=== PATIENT | female | born 1945 | race Caucasian/White ===

== ENCOUNTER 2016-08-04 15:18 | Inpatient (IN) | payer MEDICARE, OTHER, MEDICAID ==
[~2016-08-04 15:18] MED LIST: ACETAMINOPHEN325 M2 PO; ACETAMINOPHEN500 M4 PO; ALBUTEROL SULF8.5 G1 IH; ALL DAY ALLERGY10 M4 PO; ALL DAY ALLERGY10 M7 PO; APRISO0.375 G1 PO; ARTIFICIAL TEAR15 M8 EACH EYE; ARTIFICIAL TEAR1512 EACH EYE; ARTIFICIAL TEAR1512 OP; ASA; ASACOL400 MG PO; ASPIR 8181 MG PO; ASPIRIN EC81 MG PO; ATIVAN0.5 M1 PO; AUGMENTIN 875-1 EAC2 PO; AVAPRO150 MG PO; BABY ASPIRIN81 MG PO; BAZA ANTIFUNGA142 GM TP; BENADRYL25 M3 PO; BISAC-EVAC10 MG RC; BISCOLAX10 MG PR; BLISTEX MEDICATE6 GM TP; CALCIUM ANTACID CH; CALCIUM500 M4 PO; CALMOSEPTINE OI71 G1 TP; CALTRATE PO; CEFDINIR300 M1 PO; CELEBREX200 MG PO; CITRUCEL413 GM PO; CLOPIDOGREL75 M1 PO; COLACE100 M1 PO; COUMADIN10 MG PO; COUMADIN3 M1 PO; COUMADIN5 MG PO; COUMADIN6 M1 PO; CRESTOR20 MG/TAB PO; CRESTOR5 MG PO; CULTURELLE1 EAC1 PO; DIFLUCAN150 M1 PO; DIPHEDRYL25 M1 PO; DIPHENHIST25 M2 PO; FAMOTIDINE20 MG PO; FELDENE20 MG PO; FEOSOL325 M1 PO; FUROSEMIDE40 M2 PO; GLIPIZIDE5 M2 PO; GLIPIZIDE5 MG PO; GLUCOPHAGE500 MG PO; GLUCOTROL5 M1 PO; H PO; HYDROCORTISON28.411 TP; IMDUR30 MG PO; IRON325 ( 65 ) PO; ISOSORBIDE MON PO; ISOSORBIDE MONO30 M4 PO; ISOSORBIDE MONO60 M3 PO; LASIX40 M1 PO; LASIX40 MG PO; LEVALBUTER1.25 MG/01 NEB; LEVEMIR FL100 UNIT/2 SC; LEVOXYL200 MC1 PO; LEXAPRO10 M2 PO; LIALDA1.2 G PO; LISINOPRIL5 M1 PO; LOPRESSOR50 MG PO; LOVENOX120 MG/0.1 SC; LOVENOX80 MG/0.8 SQ; LYRICA50 MG PO; LYRICA50 MG/CAP PO; MAGNESIUM OXID400 M1 PO; MAGNESIUM200 MG PO; MAGNESIUM400 M2 PO; MELATONIN5 M7 PO; METOPROLOL SUCC50 M1 PO; METOPROLOL SUCC50 MG PO; MICONAZOLE NITR30 G2 TOP; MICRO-K 1010 MEQ PO; MIRALAX17 G2 PO; NEURONTIN100 M1 PO; NEURONTIN300 M1 PO; NITROGLYCERIN0.4 M2 SL; NITROGLYCERIN0.4 MG SL; NITROSTAT0.4 MG/TAB SL; NOVOLOG FL100 UNIT/2 SC; NOVOLOG FL100 UNIT/2 SQ; NOVOLOG100 UNITS/ SC; NYAMYC15 GM TOP; NYSTOP60 GM EXT; OMEPRAZOLE20 MG PO; ONDANSETRON HCL8 M1 PO; PEPCID20 M1 PO; PERCOCET 10-321 EACH PO; PLAVIX75 M1 PO; POTASSIUM CHLO10 MEQ PO; POTASSIUM-9999 MG; PREDNISONE20 M1 PO; PRINIVIL5 M1 PO; PROTONIX40 M2 PO; RANEXA1000 M1 PO; RANEXA500 M1 PO; RANEXA500 MG PO; REQUIP0.5 M1 PO; REQUIP1 M1 PO; ROSUVASTATIN CA20 MG PO; SENNA PLUS TAB1 EAC1 PO; SINGULAIR10 M1 PO; STOMAHESIVE P28.3 GM TP; SULINDAC200 MG; SYNTHROID0.2 MG/TAB PO; SYNTHROID100 MC1 PO; SYNTHROID175 MC1 PO; SYNTHROID200 MCG PO; SYNTHROID25 MC1 PO; SYNTHROID25 MCG PO; TOPROL XL50 M1 PO; TOPROL XL50 MG PO; TRANXENE T PO; TRAZODONE HCL100 M1 PO; TYLENOL EXTRA500 M1 PO; TYLENOL325 M2 PO; ULTRAM50 M1 PO; VYTORIN 10/80 T1 TAB; XANAX0.25 M1 PO; XOPENEX1.25 MG/2 INH; ZOCOR20 MG PO
[2016-08-04] MEDS ORDERED: NOVOLOG FL100 UNIT/2 SC ×2 (15:31→15:33)
[2016-08-04] MEDS ORDERED: NYSTATIN15 G4 TOP (15:35)
[2016-08-04] MEDS ORDERED: CORTIZONE-1028 G2 TP (15:35)
[2016-08-04] MEDS ORDERED: STOMAHESIVE P28.3 GM TP (15:36)
[2016-08-04] MEDS ORDERED: BAZA ANTIFUNGA142 GM TP (15:37)
[2016-08-04] MEDS ORDERED: CALMOSEPTINE OI71 G1 TP (15:38)
[2016-08-04] MEDS ORDERED: APRISO0.375 G1 PO (15:38)
[2016-08-04] MEDS ORDERED: TRANXENE T PO (15:39)
[2016-08-04] MEDS ORDERED: PLAVIX75 M1 PO (15:39)
[2016-08-04] MEDS ORDERED: ASPIR-LOW81 M1 PO (15:39)
[2016-08-04] MEDS ORDERED: FEOSOL325 M1 PO (15:40)
[2016-08-04] MEDS ORDERED: CULTURELLE1 EAC1 PO (15:40)
[2016-08-04] MEDS ORDERED: PEPCID20 M1 PO (15:40)
[2016-08-04] MEDS ORDERED: LEXAPRO10 M2 PO (15:40)
[2016-08-04] MEDS ORDERED: GLUCOTROL5 M1 PO ×2 (15:40→15:41)
[2016-08-04] MEDS ORDERED: SYNTHROID0.2 MG/TAB PO (15:41)
[2016-08-04] MEDS ORDERED: ISOSORBIDE MONO60 M3 PO (15:41)
[2016-08-04] MEDS ORDERED: LEVOTHYROXINE25 MC3 PO (15:42)
[2016-08-04] MEDS ORDERED: MAGNESIUM OXID400 M1 PO (15:42)
[2016-08-04] MEDS ORDERED: LYRICA50 MG/CAP PO (15:42)
[2016-08-04] MEDS ORDERED: PRINIVIL5 M1 PO (15:42)
[2016-08-04] MEDS ORDERED: SINGULAIR10 M1 PO (15:43)
[2016-08-04] MEDS ORDERED: MELATONIN5 M5 PO (15:43)
[2016-08-04] MEDS ORDERED: TOPROL XL50 M1 PO (15:43)
[2016-08-04] MEDS ORDERED: MIRALAX17 G2 PO (15:44)
[2016-08-04] MEDS ORDERED: RANEXA500 M1 PO (15:44)
[2016-08-04] MEDS ORDERED: REQUIP1 M1 PO (15:44)
[2016-08-04] MEDS ORDERED: ROPINIROLE HCL0.5 M1 PO (15:44)
[2016-08-04] MEDS ORDERED: COUMADIN7.5 M1 PO (15:45)
[2016-08-04] MEDS ORDERED: SENNA PLUS TAB1 EAC1 PO (15:45)
[2016-08-04] MEDS ORDERED: ROSUVASTATIN CA20 MG PO (15:45)
[2016-08-04] MEDS ORDERED: TYLENOL325 M2 PO (15:46)
[2016-08-04] MEDS ORDERED: ARTIFICIAL TEAR1512 OP (15:47)
[2016-08-04] MEDS ORDERED: XOPENEX1.25 MG/2 INH (15:48)
[2016-08-04] MEDS ORDERED: DOCUSATE SODIU100 M3 PO (15:48)
[2016-08-04] MEDS ORDERED: CALCIUM500 M4 PO (15:48)
[2016-08-04] MEDS ORDERED: ULTRAM50 M1 PO (15:49)
[2016-08-04] MEDS ORDERED: NITROSTAT0.4 MG/TAB SL (15:49)
[2016-08-04 16:11] LABS: URINE BILIRUBIN NEGATIVE (NEG); URINE BLOOD LARGE (NEG); URINE GLUCOSE (UA) NEGATIVE (NEG); URINE KETONE SMALL (NEG); URINE LEUKOCYTE ESTERASE POSITIVE (NEG); URINE NITRITE NEGATIVE (NEG); URINE PROTEIN MODERATE (NEG); URINE SPECIFIC GRAVITY 1.015 (1.003-1.030)
[2016-08-04 16:12] LABS: URINE APPEARANCE CLOUDY; URINE COLOR YELLOW
[2016-08-04 16:17] LABS: URINE WBC FULL FIELD /[HPF] (0-5)
[2016-08-04 16:18] LABS: URINE BACTERIA 2+; URINE EPITHELIAL CELLS 0-5 /[HPF] (0-10); URINE RBC 0-2 /[HPF] (0-5)
[2016-08-04 17:18] LABS: BASO % 0.8 % (0-2); EOS % 1.7 % (0-7); EOSINOPHIL ABSOLUTE COUNT 0.1 tho/cmm (0.0-0.7); HGB-HEMOGLOBIN 6.8 gm/dl (12.0-15.5); IMMATURE GRANULOCYTES ABSOLUTE 0.01 tho/cmm (0-0.03); IMMATURE GRANULOCYTES PERCENT 0.2 % (0-0.3); LYMPH % 14.3 % (20-45); LYMPH ABSOLUTE COUNT 0.7 tho/cmm (0.8-4.5); MCH (MEAN CORPUSCULAR HGB) 26.2 pg (28.0-32.0); MCV (MEAN CELL VOLUME) 89.2 fl (82.0-96.0); MEAN PLATELET VOLUME 9.5 cmc (9.4-12.4); MONO % 14.1 % (0-12); MONOCYTE ABSOLUTE COUNT 0.7 tho/cmm (0.0-1.2); NEUTROPHIL ABSOLUTE COUNT 3.3 tho/cmm (1.6-8.0); NEUTROPHIL-AUTOMATED 3.3 tho/cmm (1.6-8.0); NEUTROPHILS % 68.9 % (40-80); PLATELET COUNT 164 tho/cmm (150-450); RED CELL DISTRIBUTION WIDTH 19.3 % (12.4-16.4); WHITE BLOOD COUNT 4.8 tho/cmm (4.0-10.0)
[2016-08-04 17:19] LABS: HCT-HEMATOCRIT 23.2 % (34.0-49.0); MCHC MEAN CORPUSCULAR HGB CONC 29.3 % (32.0-36.0)
[2016-08-04 17:24] LABS: INR 4.1 INR (0.9-1.1); PROTHROMBIN TIME 49.1 SECONDS (9.0-13.6)
[2016-08-04 17:40] LABS: ALB/GLOB RATIO 0.8 (0.8-2.0); ALBUMIN 2.8 g/dl (3.5-5.0); ALKALINE PHOSPHATASE 51 U/L (33-138); ALT/SGPT 17 U/L (12-78); ANION GAP 11 mmol/L (0-20); AST/SGOT 31 U/L (10-40); BILIRUBIN,TOTAL 0.1 mg/dl (0-1.5); BLOOD UREA NITROGEN 52 mg/dl (6-24); CALCIUM 8.3 mg/dl (8.5-10.5); CARBON DIOXIDE-VENOUS 27 mmol/L (22-32); CHLORIDE 105 mmol/l (96-110); GLUCOSE 172 mg/dL (70-110); POTASSIUM 5.8 mmol/L (3.7-5.1); SODIUM 137 mmol/L (135-145); eGFR VALUE FOR BLACK 25 mL/Min
[2016-08-04 18:02] LABS: PROCALCITONIN 0.13 ng/ml (0.05-0.09)
[2016-08-04 19:49] LABS: PHOSPHOROUS 3.4 mg/dl (2.5-4.9)
[2016-08-04 19:59] LABS: MAGNESIUM 2.9 mg/dl (1.3-2.6)
[2016-08-04 22:13] LABS: ANION GAP 9 mmol/L (0-20); BLOOD UREA NITROGEN 44 mg/dl (6-24); CALCIUM 8.1 mg/dl (8.5-10.5); CARBON DIOXIDE-VENOUS 26 mmol/L (22-32); CHLORIDE 110 mmol/l (96-110); CREATININE 1.86 mg/dl (0.50-1.10); GLUCOSE 169 mg/dL (70-110); POTASSIUM 5.3 mmol/L (3.7-5.1); SODIUM 140 mmol/L (135-145); eGFR VALUE FOR BLACK 31 mL/Min
[2016-08-04 23:11] LABS: URINE PRT/CR RATIO 0.6 Ratio (0.0-0.20); URINE TOTAL PROTEIN-RANDOM 70.4 mg/dl (<11.8)
[2016-08-05 04:26] LABS: BASO % 0.5 % (0-2); EOS % 1.2 % (0-7); EOSINOPHIL ABSOLUTE COUNT 0.1 tho/cmm (0.0-0.7); HCT-HEMATOCRIT 24.3 % (34.0-49.0); HGB-HEMOGLOBIN 7.4 gm/dl (12.0-15.5); IMMATURE GRANULOCYTES ABSOLUTE 0.01 tho/cmm (0-0.03); IMMATURE GRANULOCYTES PERCENT 0.2 % (0-0.3); INR 4.4 INR (0.9-1.1); LYMPH % 13.7 % (20-45); LYMPH ABSOLUTE COUNT 0.6 tho/cmm (0.8-4.5); MCH (MEAN CORPUSCULAR HGB) 26.7 pg (28.0-32.0); MCHC MEAN CORPUSCULAR HGB CONC 30.5 % (32.0-36.0); MCV (MEAN CELL VOLUME) 87.7 fl (82.0-96.0); MEAN PLATELET VOLUME 9.4 cmc (9.4-12.4); MONO % 8.3 % (0-12); MONOCYTE ABSOLUTE COUNT 0.4 tho/cmm (0.0-1.2); NEUTROPHIL ABSOLUTE COUNT 3.2 tho/cmm (1.6-8.0); NEUTROPHIL-AUTOMATED 3.2 tho/cmm (1.6-8.0); NEUTROPHILS % 76.1 % (40-80); PLATELET COUNT 122 tho/cmm (150-450); PROTHROMBIN TIME 53.2 SECONDS (9.0-13.6); RED BLOOD COUNT 2.77 mil/cmm (4.00-5.20); WHITE BLOOD COUNT 4.2 tho/cmm (4.0-10.0)
[2016-08-05 05:08] LABS: ANION GAP 10 mmol/L (0-20); BLOOD UREA NITROGEN 40 mg/dl (6-24); CARBON DIOXIDE-VENOUS 26 mmol/L (22-32); CHLORIDE 109 mmol/l (96-110); GLUCOSE 186 mg/dL (70-110); MAGNESIUM 2.4 mg/dl (1.3-2.6); PHOSPHOROUS 2.6 mg/dl (2.5-4.9); POTASSIUM 5.4 mmol/L (3.7-5.1); SODIUM 140 mmol/L (135-145); eGFR VALUE FOR BLACK 35 mL/Min
[2016-08-05 05:13] LABS: TSH-THYROID STIMULATING HORM. 3.61 uIU/ml (0.40-3.80)
[2016-08-05 10:01] LABS: ABG CO2 ARTERIAL 22 mmol/L (21-27); ARTERIAL BLD GAS O2 SATURATION 99 % (95-98); ARTERIAL BLOOD GAS PCO2 38 mmHg (32-45); ARTERIAL PO2 131 mmHg (70-100); BICARBONATE 22 mmol/L (21-28); BLOOD GAS BASE EXCESS -2 mM/L (-/+3); PH 7.39 Units (7.35-7.45)
[2016-08-05 10:58] LABS: INR 4.3 INR (0.9-1.1); PROTHROMBIN TIME 52.1 SECONDS (9.0-13.6)
[2016-08-05 13:32] LABS: ABG CO2 ARTERIAL 25 mmol/L (21-27); ARTERIAL BLD GAS O2 SATURATION 98 % (95-98); BICARBONATE 24 mmol/L (21-28); BLOOD GAS BASE EXCESS -3 mM/L (-/+3)
[2016-08-05 13:33] LABS: ARTERIAL BLOOD GAS PCO2 51 mmHg (32-45); ARTERIAL PO2 107 mmHg (70-100); PH 7.29 Units (7.35-7.45)
[2016-08-05 13:44] LABS: BASO % 0.4 % (0-2); EOS % 1.3 % (0-7); EOSINOPHIL ABSOLUTE COUNT 0.1 tho/cmm (0.0-0.7); HCT-HEMATOCRIT 25.3 % (34.0-49.0); HGB-HEMOGLOBIN 7.8 gm/dl (12.0-15.5); IMMATURE GRANULOCYTES ABSOLUTE 0.01 tho/cmm (0-0.03); IMMATURE GRANULOCYTES PERCENT 0.2 % (0-0.3); LYMPH % 18.4 % (20-45); LYMPH ABSOLUTE COUNT 0.9 tho/cmm (0.8-4.5); MCH (MEAN CORPUSCULAR HGB) 26.9 pg (28.0-32.0); MCHC MEAN CORPUSCULAR HGB CONC 30.8 % (32.0-36.0); MCV (MEAN CELL VOLUME) 87.2 fl (82.0-96.0); MEAN PLATELET VOLUME 9.7 cmc (9.4-12.4); MONO % 10.5 % (0-12); MONOCYTE ABSOLUTE COUNT 0.5 tho/cmm (0.0-1.2); NEUTROPHIL ABSOLUTE COUNT 3.3 tho/cmm (1.6-8.0); NEUTROPHIL-AUTOMATED 3.3 tho/cmm (1.6-8.0); NEUTROPHILS % 69.2 % (40-80); PLATELET COUNT 142 tho/cmm (150-450); RED CELL DISTRIBUTION WIDTH 18.4 % (12.4-16.4); WHITE BLOOD COUNT 4.8 tho/cmm (4.0-10.0)
[2016-08-05 13:51] LABS: INR 4.1 INR (0.9-1.1); PROTHROMBIN TIME 49.5 SECONDS (9.0-13.6)
[2016-08-05 14:12] LABS: ALB/GLOB RATIO 0.7 (0.8-2.0); ALBUMIN 2.5 g/dl (3.5-5.0); ALKALINE PHOSPHATASE 42 U/L (33-138); ALT/SGPT 13 U/L (12-78); BLOOD UREA NITROGEN 32 mg/dl (6-24); CALCIUM 7.8 mg/dl (8.5-10.5); CARBON DIOXIDE-VENOUS 24 mmol/L (22-32); CHLORIDE 109 mmol/l (96-110); CREATININE 1.44 mg/dl (0.50-1.10); GLUCOSE 228 mg/dL (70-110); SODIUM 142 mmol/L (135-145); eGFR VALUE FOR BLACK 43 mL/Min
[2016-08-05 14:20] LABS: ANION GAP 14 mmol/L (0-20); AST/SGOT 30 U/L (10-40); BILIRUBIN,TOTAL 0.2 mg/dl (0-1.5); POTASSIUM 5.1 mmol/L (3.7-5.1)
[2016-08-05 14:37] LABS: PROCALCITONIN 0.05 ng/ml (0.05-0.09)
[2016-08-05 17:28] LABS: ABG CO2 ARTERIAL 25 mmol/L (21-27); ARTERIAL BLD GAS O2 SATURATION 98 % (95-98); ARTERIAL BLOOD GAS PCO2 45 mmHg (32-45); ARTERIAL PO2 88 mmHg (70-100); BICARBONATE 24 mmol/L (21-28); BLOOD GAS BASE EXCESS -2 mM/L (-/+3); PH 7.34 Units (7.35-7.45)
[2016-08-05 17:39] LABS: HGB-HEMOGLOBIN 9.9 gm/dl (12.0-15.5)
[2016-08-05 23:26] LABS: URINE BILIRUBIN NEGATIVE (NEG); URINE BLOOD MODERATE (NEG); URINE GLUCOSE (UA) MODERATE (NEG); URINE KETONE NEGATIVE (NEG); URINE LEUKOCYTE ESTERASE POSITIVE (NEG); URINE NITRITE NEGATIVE (NEG); URINE PH 6.5 (5.0-8.0); URINE PROTEIN SMALL (NEG); URINE SPECIFIC GRAVITY 1.005 (1.003-1.030)
[2016-08-05 23:27] LABS: URINE APPEARANCE CLOUDY; URINE COLOR PALE YELLOW
[2016-08-05 23:34] LABS: URINE BACTERIA 2+; URINE EPITHELIAL CELLS RARE /[HPF] (0-10); URINE RBC 20-30 /[HPF] (0-5); URINE WBC FULL FIELD /[HPF] (0-5)
[2016-08-06 05:05] LABS: INR 2.2 INR (0.9-1.1); PROTHROMBIN TIME 25.8 SECONDS (9.0-13.6)
[2016-08-06 05:21] LABS: BASO % 0.9 % (0-2); BASO ABSOLUTE COUNT 0.1 tho/cmm (0.0-0.2); EOS % 1.9 % (0-7); EOSINOPHIL ABSOLUTE COUNT 0.1 tho/cmm (0.0-0.7); HCT-HEMATOCRIT 31.9 % (34.0-49.0); IMMATURE GRANULOCYTES ABSOLUTE 0.01 tho/cmm (0-0.03); IMMATURE GRANULOCYTES PERCENT 0.2 % (0-0.3); LYMPH % 17.1 % (20-45); MCH (MEAN CORPUSCULAR HGB) 27.3 pg (28.0-32.0); MCHC MEAN CORPUSCULAR HGB CONC 31.3 % (32.0-36.0); MCV (MEAN CELL VOLUME) 87.2 fl (82.0-96.0); MEAN PLATELET VOLUME 9.7 cmc (9.4-12.4); MONO % 14.7 % (0-12); MONOCYTE ABSOLUTE COUNT 0.9 tho/cmm (0.0-1.2); NEUTROPHIL ABSOLUTE COUNT 3.8 tho/cmm (1.6-8.0); NEUTROPHIL-AUTOMATED 3.8 tho/cmm (1.6-8.0); NEUTROPHILS % 65.2 % (40-80); PLATELET COUNT 146 tho/cmm (150-450); RED BLOOD COUNT 3.66 mil/cmm (4.00-5.20); RED CELL DISTRIBUTION WIDTH 17.9 % (12.4-16.4); WHITE BLOOD COUNT 5.9 tho/cmm (4.0-10.0)
[2016-08-06 05:29] LABS: ALB/GLOB RATIO 0.8 (0.8-2.0); ALBUMIN 2.8 g/dl (3.5-5.0); ALKALINE PHOSPHATASE 47 U/L (33-138); ALT/SGPT 14 U/L (12-78); AST/SGOT 17 U/L (10-40); BILIRUBIN,TOTAL 0.3 mg/dl (0-1.5); BLOOD UREA NITROGEN 26 mg/dl (6-24); CALCIUM 8.2 mg/dl (8.5-10.5); CARBON DIOXIDE-VENOUS 28 mmol/L (22-32); CHLORIDE 106 mmol/l (96-110); GLUCOSE 125 mg/dL (70-110); MAGNESIUM 1.9 mg/dl (1.3-2.6); PHOSPHOROUS 1.9 mg/dl (2.5-4.9); SODIUM 140 mmol/L (135-145); eGFR VALUE FOR BLACK 44 mL/Min
[2016-08-06 05:39] LABS: ANION GAP 10 mmol/L (0-20)
[2016-08-07 03:22] LABS: BASO % 0.5 % (0-2); EOS % 2.7 % (0-7); EOSINOPHIL ABSOLUTE COUNT 0.2 tho/cmm (0.0-0.7); HCT-HEMATOCRIT 28.5 % (34.0-49.0); HGB-HEMOGLOBIN 8.9 gm/dl (12.0-15.5); IMMATURE GRANULOCYTES ABSOLUTE 0.01 tho/cmm (0-0.03); IMMATURE GRANULOCYTES PERCENT 0.2 % (0-0.3); LYMPH % 18.6 % (20-45); LYMPH ABSOLUTE COUNT 1.1 tho/cmm (0.8-4.5); MCH (MEAN CORPUSCULAR HGB) 27.4 pg (28.0-32.0); MCHC MEAN CORPUSCULAR HGB CONC 31.2 % (32.0-36.0); MCV (MEAN CELL VOLUME) 87.7 fl (82.0-96.0); MEAN PLATELET VOLUME 9.7 cmc (9.4-12.4); MONO % 10.6 % (0-12); MONOCYTE ABSOLUTE COUNT 0.6 tho/cmm (0.0-1.2); NEUTROPHIL ABSOLUTE COUNT 3.8 tho/cmm (1.6-8.0); NEUTROPHIL-AUTOMATED 3.8 tho/cmm (1.6-8.0); NEUTROPHILS % 67.4 % (40-80); PLATELET COUNT 136 tho/cmm (150-450); RED BLOOD COUNT 3.25 mil/cmm (4.00-5.20); RED CELL DISTRIBUTION WIDTH 17.4 % (12.4-16.4); WHITE BLOOD COUNT 5.7 tho/cmm (4.0-10.0)
[2016-08-07 04:48] LABS: ANION GAP 8 mmol/L (0-20); BLOOD UREA NITROGEN 14 mg/dl (6-24); CALCIUM 7.8 mg/dl (8.5-10.5); CARBON DIOXIDE-VENOUS 30 mmol/L (22-32); CHLORIDE 107 mmol/l (96-110); CHOLESTEROL 165 mg/dl (120-200); CREATININE 1.17 mg/dl (0.50-1.10); GLUCOSE 109 mg/dL (70-110); HDL CHOLESTEROL 54 mg/dl (40-60); LDL CHOLESTEROL 87 mg/dl (0-99); POTASSIUM 3.8 mmol/L (3.7-5.1); SODIUM 141 mmol/L (135-145); TRIGLYCERIDES 120 mg/dl (<149); VLDL 24 mg/dl (0-30); eGFR VALUE FOR BLACK 55 mL/Min
[2016-08-07 14:54] LABS: INR 1.2 INR (0.9-1.1); PROTHROMBIN TIME 14.2 SECONDS (9.0-13.6)
[2016-08-08 06:07] LABS: BASO % 0.7 % (0-2); EOS % 7.4 % (0-7); EOSINOPHIL ABSOLUTE COUNT 0.3 tho/cmm (0.0-0.7); HCT-HEMATOCRIT 28.4 % (34.0-49.0); HGB-HEMOGLOBIN 8.8 gm/dl (12.0-15.5); IMMATURE GRANULOCYTES ABSOLUTE 0.01 tho/cmm (0-0.03); IMMATURE GRANULOCYTES PERCENT 0.2 % (0-0.3); LYMPH % 24.6 % (20-45); MCH (MEAN CORPUSCULAR HGB) 27.2 pg (28.0-32.0); MCV (MEAN CELL VOLUME) 87.9 fl (82.0-96.0); MEAN PLATELET VOLUME 9.3 cmc (9.4-12.4); MONO % 8.1 % (0-12); MONOCYTE ABSOLUTE COUNT 0.3 tho/cmm (0.0-1.2); NEUTROPHIL ABSOLUTE COUNT 2.5 tho/cmm (1.6-8.0); NEUTROPHIL-AUTOMATED 2.5 tho/cmm (1.6-8.0); PLATELET COUNT 103 tho/cmm (150-450); RED BLOOD COUNT 3.23 mil/cmm (4.00-5.20); RED CELL DISTRIBUTION WIDTH 17.1 % (12.4-16.4); WHITE BLOOD COUNT 4.2 tho/cmm (4.0-10.0)
[2016-08-08 06:08] LABS: INR 1.2 INR (0.9-1.1); PROTHROMBIN TIME 13.7 SECONDS (9.0-13.6)
[2016-08-08 06:14] LABS: ANION GAP 11 mmol/L (0-20); BLOOD UREA NITROGEN 7 mg/dl (6-24); CARBON DIOXIDE-VENOUS 25 mmol/L (22-32); CHLORIDE 108 mmol/l (96-110); CREATININE 0.95 mg/dl (0.50-1.10); GLUCOSE 134 mg/dL (70-110); POTASSIUM 3.6 mmol/L (3.7-5.1); SODIUM 140 mmol/L (135-145); eGFR VALUE FOR BLACK 70 mL/Min
[2016-08-08 17:18] LABS: BASO % 0.5 % (0-2); EOS % 4.4 % (0-7); EOSINOPHIL ABSOLUTE COUNT 0.2 tho/cmm (0.0-0.7); HCT-HEMATOCRIT 30.1 % (34.0-49.0); HGB-HEMOGLOBIN 9.4 gm/dl (12.0-15.5); LYMPH % 19.1 % (20-45); LYMPH ABSOLUTE COUNT 0.8 tho/cmm (0.8-4.5); MCH (MEAN CORPUSCULAR HGB) 27.4 pg (28.0-32.0); MCHC MEAN CORPUSCULAR HGB CONC 31.2 % (32.0-36.0); MCV (MEAN CELL VOLUME) 87.8 fl (82.0-96.0); MEAN PLATELET VOLUME 9.7 cmc (9.4-12.4); MONO % 6.2 % (0-12); MONOCYTE ABSOLUTE COUNT 0.3 tho/cmm (0.0-1.2); NEUTROPHILS % 69.8 % (40-80); PLATELET COUNT 99 tho/cmm (150-450); RED BLOOD COUNT 3.43 mil/cmm (4.00-5.20); RED CELL DISTRIBUTION WIDTH 16.8 % (12.4-16.4); WHITE BLOOD COUNT 4.4 tho/cmm (4.0-10.0)
[2016-08-08 17:24] LABS: INR 1.1 INR (0.9-1.1); PROTHROMBIN TIME 12.7 SECONDS (9.0-13.6)
[2016-08-09 05:34] LABS: BASO % 0.5 % (0-2); EOS % 6.2 % (0-7); EOSINOPHIL ABSOLUTE COUNT 0.3 tho/cmm (0.0-0.7); HCT-HEMATOCRIT 28.4 % (34.0-49.0); HGB-HEMOGLOBIN 8.7 gm/dl (12.0-15.5); LYMPH % 21.1 % (20-45); LYMPH ABSOLUTE COUNT 0.9 tho/cmm (0.8-4.5); MCH (MEAN CORPUSCULAR HGB) 26.9 pg (28.0-32.0); MCHC MEAN CORPUSCULAR HGB CONC 30.6 % (32.0-36.0); MCV (MEAN CELL VOLUME) 87.9 fl (82.0-96.0); MEAN PLATELET VOLUME 9.3 cmc (9.4-12.4); MONO % 6.2 % (0-12); MONOCYTE ABSOLUTE COUNT 0.3 tho/cmm (0.0-1.2); NEUTROPHIL ABSOLUTE COUNT 2.8 tho/cmm (1.6-8.0); NEUTROPHIL-AUTOMATED 2.8 tho/cmm (1.6-8.0); PLATELET COUNT 90 tho/cmm (150-450); RED BLOOD COUNT 3.23 mil/cmm (4.00-5.20); RED CELL DISTRIBUTION WIDTH 16.6 % (12.4-16.4); WHITE BLOOD COUNT 4.2 tho/cmm (4.0-10.0)
[2016-08-09 05:37] LABS: ANION GAP 10 mmol/L (0-20); BLOOD UREA NITROGEN 4 mg/dl (6-24); CALCIUM 8.1 mg/dl (8.5-10.5); CARBON DIOXIDE-VENOUS 27 mmol/L (22-32); CHLORIDE 107 mmol/l (96-110); CREATININE 0.86 mg/dl (0.50-1.10); GLUCOSE 184 mg/dL (70-110); POTASSIUM 3.6 mmol/L (3.7-5.1); SODIUM 140 mmol/L (135-145); eGFR VALUE FOR BLACK 79 mL/Min
[2016-08-10 05:16] LABS: BASO % 0.5 % (0-2); EOSINOPHIL ABSOLUTE COUNT 0.2 tho/cmm (0.0-0.7); HCT-HEMATOCRIT 26.2 % (34.0-49.0); HGB-HEMOGLOBIN 8.3 gm/dl (12.0-15.5); IMMATURE GRANULOCYTES ABSOLUTE 0.01 tho/cmm (0-0.03); IMMATURE GRANULOCYTES PERCENT 0.3 % (0-0.3); LYMPH % 15.3 % (20-45); LYMPH ABSOLUTE COUNT 0.6 tho/cmm (0.8-4.5); MCH (MEAN CORPUSCULAR HGB) 27.7 pg (28.0-32.0); MCHC MEAN CORPUSCULAR HGB CONC 31.7 % (32.0-36.0); MCV (MEAN CELL VOLUME) 87.3 fl (82.0-96.0); MEAN PLATELET VOLUME 9.2 cmc (9.4-12.4); MONO % 6.3 % (0-12); MONOCYTE ABSOLUTE COUNT 0.2 tho/cmm (0.0-1.2); NEUTROPHIL ABSOLUTE COUNT 2.8 tho/cmm (1.6-8.0); NEUTROPHIL-AUTOMATED 2.8 tho/cmm (1.6-8.0); NEUTROPHILS % 73.6 % (40-80); PLATELET COUNT 80 tho/cmm (150-450); RED CELL DISTRIBUTION WIDTH 16.5 % (12.4-16.4); WHITE BLOOD COUNT 3.8 tho/cmm (4.0-10.0)
[2016-08-10 18:07] LABS: ABG CO2 ARTERIAL 26 mmol/L (21-27); ARTERIAL BLD GAS O2 SATURATION 90 % (95-98); ARTERIAL BLOOD GAS PCO2 49 mmHg (32-45); ARTERIAL PO2 60 mmHg (70-100); BICARBONATE 25 mmol/L (21-28); BLOOD GAS BASE EXCESS -1 mM/L (-/+3); PH 7.33 Units (7.35-7.45)
[2016-08-10 18:10] LABS: ALB/GLOB RATIO 0.6 (0.8-2.0); ALBUMIN 2.9 g/dl (3.5-5.0); ALKALINE PHOSPHATASE 64 U/L (33-138); ALT/SGPT 13 U/L (12-78); ANION GAP 14 mmol/L (0-20); AST/SGOT 11 U/L (10-40); BILIRUBIN,TOTAL 0.3 mg/dl (0-1.5); BLOOD UREA NITROGEN 3 mg/dl (6-24); CALCIUM 8.6 mg/dl (8.5-10.5); CARBON DIOXIDE-VENOUS 25 mmol/L (22-32); CHLORIDE 103 mmol/l (96-110); CREATININE 1.07 mg/dl (0.50-1.10); POTASSIUM 3.7 mmol/L (3.7-5.1); SODIUM 138 mmol/L (135-145); eGFR VALUE FOR BLACK 61 mL/Min
[2016-08-10 18:18] LABS: BASO % 0.6 % (0-2); EOS % 3.7 % (0-7); EOSINOPHIL ABSOLUTE COUNT 0.2 tho/cmm (0.0-0.7); HCT-HEMATOCRIT 36.9 % (34.0-49.0); HGB-HEMOGLOBIN 11.4 gm/dl (12.0-15.5); IMMATURE GRANULOCYTES ABSOLUTE 0.02 tho/cmm (0-0.03); IMMATURE GRANULOCYTES PERCENT 0.3 % (0-0.3); LYMPH % 15.8 % (20-45); MCH (MEAN CORPUSCULAR HGB) 27.3 pg (28.0-32.0); MCHC MEAN CORPUSCULAR HGB CONC 30.9 % (32.0-36.0); MCV (MEAN CELL VOLUME) 88.5 fl (82.0-96.0); MEAN PLATELET VOLUME 10.1 cmc (9.4-12.4); MONO % 5.7 % (0-12); MONOCYTE ABSOLUTE COUNT 0.4 tho/cmm (0.0-1.2); NEUTROPHIL ABSOLUTE COUNT 4.6 tho/cmm (1.6-8.0); NEUTROPHIL-AUTOMATED 4.6 tho/cmm (1.6-8.0); NEUTROPHILS % 73.9 % (40-80); RED BLOOD COUNT 4.17 mil/cmm (4.00-5.20); RED CELL DISTRIBUTION WIDTH 16.5 % (12.4-16.4)
[2016-08-10 18:22] LABS: GLUCOSE 338 mg/dL (70-110)
[2016-08-10 18:23] LABS: PLATELET COUNT 147 tho/cmm (150-450); WHITE BLOOD COUNT 6.2 tho/cmm (4.0-10.0)
[2016-08-11 04:46] LABS: BASO % 0.2 % (0-2); EOS % 1.6 % (0-7); EOSINOPHIL ABSOLUTE COUNT 0.1 tho/cmm (0.0-0.7); HCT-HEMATOCRIT 27.8 % (34.0-49.0); HGB-HEMOGLOBIN 8.6 gm/dl (12.0-15.5); IMMATURE GRANULOCYTES ABSOLUTE 0.01 tho/cmm (0-0.03); IMMATURE GRANULOCYTES PERCENT 0.2 % (0-0.3); LYMPH ABSOLUTE COUNT 0.6 tho/cmm (0.8-4.5); MCHC MEAN CORPUSCULAR HGB CONC 30.9 % (32.0-36.0); MCV (MEAN CELL VOLUME) 87.4 fl (82.0-96.0); MONOCYTE ABSOLUTE COUNT 0.3 tho/cmm (0.0-1.2); NEUTROPHIL ABSOLUTE COUNT 3.9 tho/cmm (1.6-8.0); NEUTROPHIL-AUTOMATED 3.9 tho/cmm (1.6-8.0); PLATELET COUNT 91 tho/cmm (150-450); RED BLOOD COUNT 3.18 mil/cmm (4.00-5.20); RED CELL DISTRIBUTION WIDTH 16.4 % (12.4-16.4); WHITE BLOOD COUNT 4.9 tho/cmm (4.0-10.0)
[2016-08-11 06:17] LABS: PROCALCITONIN 0.05 ng/ml (0.05-0.09)
[2016-08-11 15:41] LABS: TSH-THYROID STIMULATING HORM. 3.97 uIU/ml (0.40-3.80)
[2016-08-12 05:04] LABS: BASO % 0.8 % (0-2); EOS % 5.2 % (0-7); EOSINOPHIL ABSOLUTE COUNT 0.2 tho/cmm (0.0-0.7); HCT-HEMATOCRIT 27.9 % (34.0-49.0); HGB-HEMOGLOBIN 8.5 gm/dl (12.0-15.5); IMMATURE GRANULOCYTES ABSOLUTE 0.01 tho/cmm (0-0.03); IMMATURE GRANULOCYTES PERCENT 0.3 % (0-0.3); LYMPH % 22.1 % (20-45); LYMPH ABSOLUTE COUNT 0.8 tho/cmm (0.8-4.5); MCH (MEAN CORPUSCULAR HGB) 26.6 pg (28.0-32.0); MCHC MEAN CORPUSCULAR HGB CONC 30.5 % (32.0-36.0); MCV (MEAN CELL VOLUME) 87.5 fl (82.0-96.0); MEAN PLATELET VOLUME 9.9 cmc (9.4-12.4); MONO % 7.4 % (0-12); MONOCYTE ABSOLUTE COUNT 0.3 tho/cmm (0.0-1.2); NEUTROPHIL ABSOLUTE COUNT 2.4 tho/cmm (1.6-8.0); NEUTROPHIL-AUTOMATED 2.4 tho/cmm (1.6-8.0); NEUTROPHILS % 64.2 % (40-80); PLATELET COUNT 106 tho/cmm (150-450); RED BLOOD COUNT 3.19 mil/cmm (4.00-5.20); RED CELL DISTRIBUTION WIDTH 16.1 % (12.4-16.4); WHITE BLOOD COUNT 3.7 tho/cmm (4.0-10.0)
[2016-08-12 05:14] LABS: ANION GAP 11 mmol/L (0-20); BLOOD UREA NITROGEN 2 mg/dl (6-24); CALCIUM 8.3 mg/dl (8.5-10.5); CARBON DIOXIDE-VENOUS 29 mmol/L (22-32); CHLORIDE 106 mmol/l (96-110); CREATININE 0.86 mg/dl (0.50-1.10); POTASSIUM 3.4 mmol/L (3.7-5.1); SODIUM 143 mmol/L (135-145); eGFR VALUE FOR BLACK 79 mL/Min
[2016-08-12 05:22] LABS: INR 1.1 INR (0.9-1.1); PROTHROMBIN TIME 12.3 SECONDS (9.0-13.6)
[2016-08-12 05:30] LABS: GLUCOSE 111 mg/dL (70-110)
[2016-08-13 04:04] LABS: PROTHROMBIN TIME 12.1 SECONDS (9.0-13.6)
[2016-08-13 04:27] LABS: ANION GAP 11 mmol/L (0-20); BLOOD UREA NITROGEN 5 mg/dl (6-24); CALCIUM 8.3 mg/dl (8.5-10.5); CARBON DIOXIDE-VENOUS 31 mmol/L (22-32); CHLORIDE 104 mmol/l (96-110); CREATININE 0.93 mg/dl (0.50-1.10); GLUCOSE 165 mg/dL (70-110); POTASSIUM 3.8 mmol/L (3.7-5.1); SODIUM 142 mmol/L (135-145); eGFR VALUE FOR BLACK 72 mL/Min
[2016-08-13 04:33] LABS: BASO % 0.5 % (0-2); EOS % 3.7 % (0-7); EOSINOPHIL ABSOLUTE COUNT 0.2 tho/cmm (0.0-0.7); HCT-HEMATOCRIT 28.5 % (34.0-49.0); HGB-HEMOGLOBIN 8.7 gm/dl (12.0-15.5); IMMATURE GRANULOCYTES ABSOLUTE 0.01 tho/cmm (0-0.03); IMMATURE GRANULOCYTES PERCENT 0.2 % (0-0.3); LYMPH % 16.4 % (20-45); LYMPH ABSOLUTE COUNT 0.7 tho/cmm (0.8-4.5); MCHC MEAN CORPUSCULAR HGB CONC 30.5 % (32.0-36.0); MCV (MEAN CELL VOLUME) 88.5 fl (82.0-96.0); MEAN PLATELET VOLUME 9.3 cmc (9.4-12.4); MONOCYTE ABSOLUTE COUNT 0.4 tho/cmm (0.0-1.2); NEUTROPHILS % 69.2 % (40-80); PLATELET COUNT 110 tho/cmm (150-450); RED BLOOD COUNT 3.22 mil/cmm (4.00-5.20); RED CELL DISTRIBUTION WIDTH 16.2 % (12.4-16.4); WHITE BLOOD COUNT 4.4 tho/cmm (4.0-10.0)
--- NOTE | 2016-08-13 18:07 | NUR ---
AGREE WITH CHARTING FOR [facility] [employer] STUDENT RN FOR PATIENT. PATIENT STATES SHE DOESN'T KNOW HOW SHE IS GOING TO BE ABLE TO CONTINUE TO EAT WHAT SPEECH RECOMMENDED. STATES SHE WANTS TO EAT REAL FOOD. HAVE ENCOURAGED PATIENT TO HOLD FOOD IN MOUTH FOR A LITTLE BIT BEFORE SWALLOWING. PATIENT FORGETS. REPOSITIONED PATIENT Q2H AND PRN WHEN INCONTINENT. PANNUS FOLDS RED, [place]STATIN AND SENSACARE APPLIED TO AREA WITH EACH INCONTINENT EPISODE. PATIENT UNABLE TO HELP WITH ROLLING SIDE TO SIDE DUE TO LEFT SIDE WEAKNESS. PATIENT WAS OFF AND ON ALERT AND ORIENTED. WILL REPEAT SELF AND MAKE OFF COMMENTS. FAMILY STATES THAT PATIENT IS NORMALLY VERY ALERT AND ORIENTED BUT GETS CONFUSED WITH INFECTIONS. ENCOURGED COUGHING AND DEEP BREATHING.
[2016-08-14 06:37] LABS: INR 1.1 INR (0.9-1.1); PROTHROMBIN TIME 12.9 SECONDS (9.0-13.6)
[2016-08-14] MEDS ORDERED: VANCOMYCIN125 MG/2.1 PO (11:45)
[2016-08-14] MEDS ORDERED: DIFLUCAN100 M1 PO (11:45)
[2016-08-14] MEDS ORDERED: IPRAT-ALBUT 0.5-3 ML IPV (11:47)
[2016-08-14] MEDS ORDERED: ARIXTRA2.5 MG/0.1 SC (11:49)
[2016-08-14] MEDS ORDERED: GLUCAGON HCL1 MG IM (12:01)
[2016-08-14] MEDS ORDERED: AUGMENTIN 875-1 EAC2 PO (12:03)
[2016-08-14] MEDS ORDERED: CULTURELLE1 EAC1 PO (12:04)
[2016-08-15 04:40] LABS: ABG CO2 ARTERIAL 31 mmol/L (21-27); ARTERIAL BLD GAS O2 SATURATION 99 % (95-98); ARTERIAL BLOOD GAS PCO2 44 mmHg (32-45); ARTERIAL PO2 104 mmHg (70-100); BICARBONATE 30 mmol/L (21-28); BLOOD GAS BASE EXCESS 5 mM/L (-/+3); PH 7.44 Units (7.35-7.45)
[2016-08-15 05:41] LABS: INR 1.2 INR (0.9-1.1); PROTHROMBIN TIME 13.9 SECONDS (9.0-13.6)
[2016-11-04] MEDS ORDERED: PERCOCET 10-321 EACH PO (12:29)
[2016-11-04] MEDS ORDERED: IPRAT-ALBUT 0.5-3 ML INH (12:33)
[2016-11-04] MEDS ORDERED: COUMADIN4 M1 PO (14:15)
[2016-11-08] MEDS ORDERED: AUGMENTIN 500-1 EAC2 PO (12:12)
[2016-11-08] MEDS ORDERED: DIFLUCAN100 M1 PO (12:13)
[2016-11-08] MEDS ORDERED: NYSTATIN100000 UNI PO (12:14)
[2016-11-08] MEDS ORDERED: MACROBID 100 M100 M1 PO (12:16)
[2016-11-08] MEDS ORDERED: LOVENOX120 MG/0.1 SC (12:19)
[2016-11-08] MEDS ORDERED: COUMADIN7.5 M1 PO (12:22)
[2016-12-03] MEDS ORDERED: APRISO0.375 G1 PO (15:33)
[2016-12-03] MEDS ORDERED: LYRICA50 MG/CAP PO (15:41)
[2016-12-03] MEDS ORDERED: CLARITIN10 M6 PO (15:41)
[2016-12-03] MEDS ORDERED: ROBAFEN100 MG/52 PO (15:47)
[2016-12-03] MEDS ORDERED: COUMADIN5 M2 PO (16:01)
[2016-12-03] MEDS ORDERED: COUMADIN2 M1 PO (16:02)
[2016-12-03] MEDS ORDERED: IPRAT-ALBUT 0.5-3 ML INH (16:21)
[2016-12-03] MEDS ORDERED: CALMOSEPTINE OI71 G1 TOP (16:31)
[2016-12-03] MEDS ORDERED: STOMAHESIVE P28.3 GM TOP (16:32)
[2016-12-06] MEDS ORDERED: LEVAQUIN750 M1 PO (14:42)
[2016-12-06] MEDS ORDERED: FAMOTIDINE20 M3 PO (14:53)
[2016-12-06] MEDS ORDERED: LASIX40 M1 PO (14:58)
== END 2016-08-15 14:48 | DRG 871 ==
LOC: EDMED 15:18 → EMR2 19:33 → CCU 20:30 → 5EB 08-09 18:18 → CCU 08-10 17:30 → PCUA 08-12 18:47
PROVIDERS: Emergency Medicine; Hospitalist; Internal Medicine; Internal Medicine Critical Care Medicine; Internal Medicine Pulmonary Disease; ADMIT Hospitalist
PROC: 5A09457 Assistance with Respiratory Ventilation, 24-96 Consecutive Hours, Continuous Positive Airway Pressure (ICD-10-PCS; principal; 2016-08-04)
PROC: 02HV33Z Insertion of Infusion Device into Superior Vena Cava, Percutaneous Approach (ICD-10-PCS; 2016-08-04)
PROC: B548ZZA Ultrasonography of Superior Vena Cava, Guidance (ICD-10-PCS; 2016-08-04)
PROC: 30233N1 Transfusion of Nonautologous Red Blood Cells into Peripheral Vein, Percutaneous Approach (ICD-10-PCS; 2016-08-04)
PROC: 0DJ08ZZ Inspection of Upper Intestinal Tract, Via Natural or Artificial Opening Endoscopic (ICD-10-PCS; 2016-08-08)
DX: A41.9 Sepsis, unspecified organism (principal); G93.40 Encephalopathy, unspecified; J69.0 Pneumonitis due to inhalation of food and vomit; J96.21 Acute and chronic respiratory failure with hypoxia; R65.21 Severe sepsis with septic shock; N17.9 Acute kidney failure, unspecified; A04.7 Enterocolitis due to Clostridium difficile; D61.818 Other pancytopenia; D62 Acute posthemorrhagic anemia; D68.51 Activated protein C resistance; I69.354 Hemiplegia and hemiparesis following cerebral infarction affecting left non-dominant side; K92.1 Melena; N39.0 Urinary tract infection, site not specified; Z68.41 Body mass index [BMI] 40.0-44.9, adult; D69.6 Thrombocytopenia, unspecified; E03.9 Hypothyroidism, unspecified; E11.9 Type 2 diabetes mellitus without complications; E87.5 Hyperkalemia; G47.33 Obstructive sleep apnea (adult) (pediatric); I12.9 Hypertensive chronic kidney disease with stage 1 through stage 4 chronic kidney disease, or unspecified chronic kidney disease; I73.9 Peripheral vascular disease, unspecified; J44.9 Chronic obstructive pulmonary disease, unspecified; Z51.5 Encounter for palliative care; Z95.1 Presence of aortocoronary bypass graft; Z99.81 Dependence on supplemental oxygen
CPT/HCPCS: C1751; C1758; C9113; J0690; J1644; J1650; J1652; J1815; J1940; J2185; J2270; J2543; J3370; J3430; J3480; J7030; J7040; J7050; P9016; P9612; Q9967

== ENCOUNTER 2016-09-23 01:36 | Inpatient (IN) | payer MEDICARE, OTHER, MEDICAID ==
[~2016-09-23 01:36] MED LIST changes: +ARIXTRA2.5 MG/0.1 SC; +ASPIR-LOW81 M1 PO; +CORTIZONE-1028 G2 TP; +COUMADIN7.5 M1 PO; +DIFLUCAN100 M1 PO; +DOCUSATE SODIU100 M3 PO; +GLUCAGON HCL1 MG IM; +IPRAT-ALBUT 0.5-3 ML IPV; +LEVOTHYROXINE25 MC3 PO; +MELATONIN5 M5 PO; +NYSTATIN15 G4 TOP; +ROPINIROLE HCL0.5 M1 PO; +VANCOMYCIN125 MG/2.1 PO
[2016-09-23 02:28] LABS: ABG CO2 ARTERIAL 25 mmol/L (21-27); ARTERIAL BLD GAS O2 SATURATION 92 % (95-98); ARTERIAL BLOOD GAS PCO2 46 mmHg (32-45); ARTERIAL PO2 67 mmHg (70-100); BICARBONATE 23 mmol/L (21-28); BLOOD GAS BASE EXCESS -2 mM/L (-/+3); PH 7.32 Units (7.35-7.45)
[2016-09-23 02:38] LABS: INR 1.2 INR (0.9-1.1); PROTHROMBIN TIME 13.8 SECONDS (9.0-13.6)
[2016-09-23 02:43] LABS: BASO % 0.5 % (0-2); EOS % 0.6 % (0-7); HCT-HEMATOCRIT 36.4 % (34.0-49.0); HGB-HEMOGLOBIN 11.5 gm/dl (12.0-15.5); IMMATURE GRANULOCYTES ABSOLUTE 0.01 tho/cmm (0-0.03); IMMATURE GRANULOCYTES PERCENT 0.2 % (0-0.3); LYMPH % 8.1 % (20-45); LYMPH ABSOLUTE COUNT 0.5 tho/cmm (0.8-4.5); MCH (MEAN CORPUSCULAR HGB) 25.9 pg (28.0-32.0); MCHC MEAN CORPUSCULAR HGB CONC 31.6 % (32.0-36.0); MEAN PLATELET VOLUME 9.4 cmc (9.4-12.4); MONO % 5.1 % (0-12); MONOCYTE ABSOLUTE COUNT 0.3 tho/cmm (0.0-1.2); NEUTROPHIL ABSOLUTE COUNT 5.7 tho/cmm (1.6-8.0); NEUTROPHIL-AUTOMATED 5.7 tho/cmm (1.6-8.0); NEUTROPHILS % 85.5 % (40-80); PLATELET COUNT 149 tho/cmm (150-450); RED BLOOD COUNT 4.44 mil/cmm (4.00-5.20); RED CELL DISTRIBUTION WIDTH 16.3 % (12.4-16.4); WHITE BLOOD COUNT 6.6 tho/cmm (4.0-10.0)
[2016-09-23 02:56] LABS: ALB/GLOB RATIO 0.7 (0.8-2.0); ALBUMIN 3.1 g/dl (3.5-5.0); ALKALINE PHOSPHATASE 78 U/L (33-138); ALT/SGPT 27 U/L (12-78); ANION GAP 17 mmol/L (0-20); AST/SGOT 33 U/L (10-40); BILIRUBIN,TOTAL 0.2 mg/dl (0-1.5); BLOOD UREA NITROGEN 23 mg/dl (6-24); CALCIUM 8.9 mg/dl (8.5-10.5); CARBON DIOXIDE-VENOUS 23 mmol/L (22-32); CHLORIDE 101 mmol/l (96-110); GLUCOSE 423 mg/dL (70-110); POTASSIUM 5.5 mmol/L (3.7-5.1); SODIUM 135 mmol/L (135-145); eGFR VALUE FOR BLACK 37 mL/Min
[2016-09-23] MEDS ORDERED: TRESIBA FL100 UNIT/1 SC (03:03)
[2016-09-23] MEDS ORDERED: ATIVAN0.5 M1 PO (03:03)
[2016-09-23] MEDS ORDERED: BIPAP (03:04)
[2016-09-23 07:03] LABS: BLOOD UREA NITROGEN 23 mg/dl (6-24); CALCIUM 8.6 mg/dl (8.5-10.5); CARBON DIOXIDE-VENOUS 25 mmol/L (22-32); CHLORIDE 104 mmol/l (96-110); CREATININE 1.46 mg/dl (0.50-1.10); GLUCOSE 364 mg/dL (70-110); SODIUM 138 mmol/L (135-145); eGFR VALUE FOR BLACK 42 mL/Min
[2016-09-23 07:05] LABS: ANION GAP 15 mmol/L (0-20)
[2016-09-23 07:06] LABS: POTASSIUM 5.8 mmol/L (3.7-5.1)
[2016-09-23 10:13] LABS: ABG CO2 ARTERIAL 27 mmol/L (21-27); ARTERIAL BLD GAS O2 SATURATION 98 % (95-98); ARTERIAL BLOOD GAS PCO2 49 mmHg (32-45); ARTERIAL PO2 131 mmHg (70-100); BICARBONATE 25 mmol/L (21-28); BLOOD GAS BASE EXCESS 0 mM/L (-/+3); PH 7.33 Units (7.35-7.45)
[2016-09-24 04:19] LABS: ALBUMIN 2.8 g/dl (3.5-5.0); BLOOD UREA NITROGEN 16 mg/dl (6-24); CALCIUM 8.1 mg/dl (8.5-10.5); CARBON DIOXIDE-VENOUS 27 mmol/L (22-32); CHLORIDE 101 mmol/l (96-110); CHOLESTEROL 152 mg/dl (120-200); CREATININE 1.35 mg/dl (0.50-1.10); GLUCOSE 286 mg/dL (70-110); HDL CHOLESTEROL 44 mg/dl (40-60); LDL CHOLESTEROL 68 mg/dl (0-99); PHOSPHOROUS 2.7 mg/dl (2.5-4.9); SODIUM 137 mmol/L (135-145); VLDL 40 mg/dl (0-30); eGFR VALUE FOR BLACK 46 mL/Min
[2016-09-24 04:27] LABS: ANION GAP 14 mmol/L (0-20); POTASSIUM 4.8 mmol/L (3.7-5.1); TRIGLYCERIDES 200 mg/dl (<149)
[2016-09-24 05:22] LABS: ABG CO2 ARTERIAL 28 mmol/L (21-27); ARTERIAL BLD GAS O2 SATURATION 97 % (95-98); ARTERIAL BLOOD GAS PCO2 55 mmHg (32-45); BICARBONATE 27 mmol/L (21-28); BLOOD GAS BASE EXCESS 0 mM/L (-/+3); PH 7.31 Units (7.35-7.45)
[2016-09-24 05:23] LABS: ARTERIAL PO2 90 mmHg (70-100)
[2016-09-24 13:01] LABS: BASO % 0.4 % (0-2); EOS % 1.7 % (0-7); EOSINOPHIL ABSOLUTE COUNT 0.1 tho/cmm (0.0-0.7); HCT-HEMATOCRIT 28.9 % (34.0-49.0); HGB-HEMOGLOBIN 8.9 gm/dl (12.0-15.5); IMMATURE GRANULOCYTES ABSOLUTE 0.02 tho/cmm (0-0.03); IMMATURE GRANULOCYTES PERCENT 0.4 % (0-0.3); LYMPH % 12.2 % (20-45); LYMPH ABSOLUTE COUNT 0.6 tho/cmm (0.8-4.5); MCH (MEAN CORPUSCULAR HGB) 25.4 pg (28.0-32.0); MCHC MEAN CORPUSCULAR HGB CONC 30.8 % (32.0-36.0); MCV (MEAN CELL VOLUME) 82.3 fl (82.0-96.0); MEAN PLATELET VOLUME 9.2 cmc (9.4-12.4); MONO % 7.2 % (0-12); MONOCYTE ABSOLUTE COUNT 0.3 tho/cmm (0.0-1.2); NEUTROPHIL ABSOLUTE COUNT 3.7 tho/cmm (1.6-8.0); NEUTROPHIL-AUTOMATED 3.7 tho/cmm (1.6-8.0); NEUTROPHILS % 78.1 % (40-80); PLATELET COUNT 132 tho/cmm (150-450); RED BLOOD COUNT 3.51 mil/cmm (4.00-5.20); RED CELL DISTRIBUTION WIDTH 16.4 % (12.4-16.4); WHITE BLOOD COUNT 4.7 tho/cmm (4.0-10.0)
[2016-09-24 13:32] LABS: PROCALCITONIN <0.05 ng/ml (0.05-0.09)
[2016-09-25 05:03] LABS: BASO % 0.7 % (0-2); EOS % 2.9 % (0-7); EOSINOPHIL ABSOLUTE COUNT 0.1 tho/cmm (0.0-0.7); HCT-HEMATOCRIT 27.8 % (34.0-49.0); HGB-HEMOGLOBIN 8.5 gm/dl (12.0-15.5); IMMATURE GRANULOCYTES ABSOLUTE 0.02 tho/cmm (0-0.03); IMMATURE GRANULOCYTES PERCENT 0.5 % (0-0.3); LYMPH % 19.2 % (20-45); LYMPH ABSOLUTE COUNT 0.8 tho/cmm (0.8-4.5); MCH (MEAN CORPUSCULAR HGB) 25.1 pg (28.0-32.0); MCHC MEAN CORPUSCULAR HGB CONC 30.6 % (32.0-36.0); MEAN PLATELET VOLUME 9.1 cmc (9.4-12.4); MONO % 10.7 % (0-12); MONOCYTE ABSOLUTE COUNT 0.4 tho/cmm (0.0-1.2); NEUTROPHIL ABSOLUTE COUNT 2.7 tho/cmm (1.6-8.0); NEUTROPHIL-AUTOMATED 2.7 tho/cmm (1.6-8.0); PLATELET COUNT 117 tho/cmm (150-450); RED BLOOD COUNT 3.39 mil/cmm (4.00-5.20); RED CELL DISTRIBUTION WIDTH 16.5 % (12.4-16.4); WHITE BLOOD COUNT 4.1 tho/cmm (4.0-10.0)
[2016-09-25 05:11] LABS: ALBUMIN 2.8 g/dl (3.5-5.0); ANION GAP 12 mmol/L (0-20); BLOOD UREA NITROGEN 15 mg/dl (6-24); CALCIUM 8.4 mg/dl (8.5-10.5); CARBON DIOXIDE-VENOUS 28 mmol/L (22-32); CHLORIDE 100 mmol/l (96-110); CREATININE 1.46 mg/dl (0.50-1.10); GLUCOSE 288 mg/dL (70-110); MAGNESIUM 1.7 mg/dl (1.8-2.6); PHOSPHOROUS 3.2 mg/dl (2.5-4.9); POTASSIUM 4.2 mmol/L (3.7-5.1); SODIUM 136 mmol/L (135-145); eGFR VALUE FOR BLACK 42 mL/Min
[2016-09-26 03:49] LABS: BASO % 0.8 % (0-2); EOSINOPHIL ABSOLUTE COUNT 0.2 tho/cmm (0.0-0.7); HCT-HEMATOCRIT 25.9 % (34.0-49.0); HGB-HEMOGLOBIN 7.9 gm/dl (12.0-15.5); IMMATURE GRANULOCYTES ABSOLUTE 0.03 tho/cmm (0-0.03); IMMATURE GRANULOCYTES PERCENT 0.6 % (0-0.3); LYMPH % 14.9 % (20-45); LYMPH ABSOLUTE COUNT 0.8 tho/cmm (0.8-4.5); MCH (MEAN CORPUSCULAR HGB) 25.2 pg (28.0-32.0); MCHC MEAN CORPUSCULAR HGB CONC 30.5 % (32.0-36.0); MCV (MEAN CELL VOLUME) 82.5 fl (82.0-96.0); MEAN PLATELET VOLUME 9.1 cmc (9.4-12.4); MONO % 9.4 % (0-12); MONOCYTE ABSOLUTE COUNT 0.5 tho/cmm (0.0-1.2); NEUTROPHIL ABSOLUTE COUNT 3.6 tho/cmm (1.6-8.0); NEUTROPHIL-AUTOMATED 3.6 tho/cmm (1.6-8.0); NEUTROPHILS % 71.3 % (40-80); PLATELET COUNT 123 tho/cmm (150-450); RED BLOOD COUNT 3.14 mil/cmm (4.00-5.20); RED CELL DISTRIBUTION WIDTH 16.6 % (12.4-16.4)
[2016-09-26 03:53] LABS: INR 1.1 INR (0.9-1.1); PROTHROMBIN TIME 12.5 SECONDS (9.0-13.6)
[2016-09-26 03:59] LABS: ALBUMIN 2.9 g/dl (3.5-5.0); ANION GAP 12 mmol/L (0-20); BLOOD UREA NITROGEN 12 mg/dl (6-24); CALCIUM 8.3 mg/dl (8.5-10.5); CARBON DIOXIDE-VENOUS 29 mmol/L (22-32); CHLORIDE 98 mmol/l (96-110); CREATININE 1.37 mg/dl (0.50-1.10); GLUCOSE 215 mg/dL (70-110); MAGNESIUM 1.8 mg/dl (1.8-2.6); PHOSPHOROUS 2.1 mg/dl (2.5-4.9); POTASSIUM 4.4 mmol/L (3.7-5.1); SODIUM 135 mmol/L (135-145); eGFR VALUE FOR BLACK 45 mL/Min
[2016-09-26 04:32] LABS: PROCALCITONIN 0.09 ng/ml (0.05-0.09)
[2016-09-26 11:48] LABS: ABG CO2 ARTERIAL 29 mmol/L (21-27); ARTERIAL BLD GAS O2 SATURATION 97 % (95-98); ARTERIAL BLOOD GAS PCO2 51 mmHg (32-45); ARTERIAL PO2 95 mmHg (70-100); BICARBONATE 28 mmol/L (21-28); BLOOD GAS BASE EXCESS 2 mM/L (-/+3); PH 7.35 Units (7.35-7.45)
[2016-09-27 03:26] LABS: EOS % 4.3 % (0-7); EOSINOPHIL ABSOLUTE COUNT 0.2 tho/cmm (0.0-0.7); HCT-HEMATOCRIT 27.2 % (34.0-49.0); HGB-HEMOGLOBIN 8.4 gm/dl (12.0-15.5); IMMATURE GRANULOCYTES ABSOLUTE 0.02 tho/cmm (0-0.03); IMMATURE GRANULOCYTES PERCENT 0.5 % (0-0.3); LYMPH % 20.8 % (20-45); LYMPH ABSOLUTE COUNT 0.9 tho/cmm (0.8-4.5); MCH (MEAN CORPUSCULAR HGB) 25.5 pg (28.0-32.0); MCHC MEAN CORPUSCULAR HGB CONC 30.9 % (32.0-36.0); MCV (MEAN CELL VOLUME) 82.4 fl (82.0-96.0); MEAN PLATELET VOLUME 8.7 cmc (9.4-12.4); MONO % 12.3 % (0-12); MONOCYTE ABSOLUTE COUNT 0.5 tho/cmm (0.0-1.2); NEUTROPHIL ABSOLUTE COUNT 2.5 tho/cmm (1.6-8.0); NEUTROPHIL-AUTOMATED 2.5 tho/cmm (1.6-8.0); NEUTROPHILS % 61.1 % (40-80); PLATELET COUNT 107 tho/cmm (150-450); RED CELL DISTRIBUTION WIDTH 16.5 % (12.4-16.4); WHITE BLOOD COUNT 4.1 tho/cmm (4.0-10.0)
[2016-09-27 03:35] LABS: INR 1.2 INR (0.9-1.1); PROTHROMBIN TIME 13.7 SECONDS (9.0-13.6)
[2016-09-27 03:44] LABS: ALBUMIN 2.9 g/dl (3.5-5.0); ANION GAP 12 mmol/L (0-20); BLOOD UREA NITROGEN 11 mg/dl (6-24); CALCIUM 8.3 mg/dl (8.5-10.5); CARBON DIOXIDE-VENOUS 28 mmol/L (22-32); CHLORIDE 101 mmol/l (96-110); CREATININE 1.33 mg/dl (0.50-1.10); GLUCOSE 287 mg/dL (70-110); PHOSPHOROUS 2.3 mg/dl (2.5-4.9); POTASSIUM 4.1 mmol/L (3.7-5.1); SODIUM 137 mmol/L (135-145); eGFR VALUE FOR BLACK 46 mL/Min
[2016-09-27 13:42] LABS: URINE APPEARANCE CLOUDY; URINE BILIRUBIN NEGATIVE (NEG); URINE BLOOD LARGE (NEG); URINE COLOR YELLOW; URINE GLUCOSE (UA) LARGE (NEG); URINE KETONE NEGATIVE (NEG); URINE LEUKOCYTE ESTERASE POSITIVE (NEG); URINE NITRITE NEGATIVE (NEG); URINE PH 6.5 (5.0-8.0); URINE PROTEIN MODERATE (NEG); URINE SPECIFIC GRAVITY 1.015 (1.003-1.030)
[2016-09-27 13:48] LABS: URINE BACTERIA 1+; URINE WBC FULL FIELD /[HPF] (0-5)
[2016-09-27 13:49] LABS: URINE RBC 18-20 /[HPF] (0-5)
[2016-09-28 04:40] LABS: INR 1.3 INR (0.9-1.1)
[2016-09-28 12:37] LABS: BASO % 0.6 % (0-2); EOS % 3.5 % (0-7); EOSINOPHIL ABSOLUTE COUNT 0.2 tho/cmm (0.0-0.7); HCT-HEMATOCRIT 29.1 % (34.0-49.0); IMMATURE GRANULOCYTES ABSOLUTE 0.03 tho/cmm (0-0.03); IMMATURE GRANULOCYTES PERCENT 0.6 % (0-0.3); LYMPH % 13.3 % (20-45); LYMPH ABSOLUTE COUNT 0.7 tho/cmm (0.8-4.5); MCH (MEAN CORPUSCULAR HGB) 25.9 pg (28.0-32.0); MCHC MEAN CORPUSCULAR HGB CONC 30.9 % (32.0-36.0); MCV (MEAN CELL VOLUME) 83.6 fl (82.0-96.0); MEAN PLATELET VOLUME 9.6 cmc (9.4-12.4); MONOCYTE ABSOLUTE COUNT 0.4 tho/cmm (0.0-1.2); NEUTROPHIL ABSOLUTE COUNT 3.6 tho/cmm (1.6-8.0); NEUTROPHIL-AUTOMATED 3.6 tho/cmm (1.6-8.0); PLATELET COUNT 126 tho/cmm (150-450); RED BLOOD COUNT 3.48 mil/cmm (4.00-5.20); RED CELL DISTRIBUTION WIDTH 16.5 % (12.4-16.4); WHITE BLOOD COUNT 4.9 tho/cmm (4.0-10.0)
[2016-09-29 05:00] LABS: BASO ABSOLUTE COUNT 0.1 tho/cmm (0.0-0.2); EOS % 3.7 % (0-7); EOSINOPHIL ABSOLUTE COUNT 0.2 tho/cmm (0.0-0.7); HCT-HEMATOCRIT 27.5 % (34.0-49.0); HGB-HEMOGLOBIN 8.4 gm/dl (12.0-15.5); IMMATURE GRANULOCYTES ABSOLUTE 0.02 tho/cmm (0-0.03); IMMATURE GRANULOCYTES PERCENT 0.4 % (0-0.3); LYMPH % 21.2 % (20-45); MCH (MEAN CORPUSCULAR HGB) 25.4 pg (28.0-32.0); MCHC MEAN CORPUSCULAR HGB CONC 30.5 % (32.0-36.0); MCV (MEAN CELL VOLUME) 83.1 fl (82.0-96.0); MEAN PLATELET VOLUME 9.4 cmc (9.4-12.4); MONO % 9.7 % (0-12); MONOCYTE ABSOLUTE COUNT 0.5 tho/cmm (0.0-1.2); NEUTROPHIL ABSOLUTE COUNT 3.1 tho/cmm (1.6-8.0); NEUTROPHIL-AUTOMATED 3.1 tho/cmm (1.6-8.0); PLATELET COUNT 128 tho/cmm (150-450); RED BLOOD COUNT 3.31 mil/cmm (4.00-5.20); RED CELL DISTRIBUTION WIDTH 16.6 % (12.4-16.4); WHITE BLOOD COUNT 4.9 tho/cmm (4.0-10.0)
[2016-09-29 05:05] LABS: INR 1.4 INR (0.9-1.1); PROTHROMBIN TIME 16.6 SECONDS (9.0-13.6)
[2016-09-29 05:15] LABS: ANION GAP 12 mmol/L (0-20); BLOOD UREA NITROGEN 10 mg/dl (6-24); CALCIUM 8.5 mg/dl (8.5-10.5); CARBON DIOXIDE-VENOUS 28 mmol/L (22-32); CHLORIDE 101 mmol/l (96-110); GLUCOSE 234 mg/dL (70-110); POTASSIUM 3.9 mmol/L (3.7-5.1); SODIUM 137 mmol/L (135-145); eGFR VALUE FOR BLACK 48 mL/Min
[2016-11-04] MEDS ORDERED: PERCOCET 10-321 EACH PO (12:29)
[2016-11-04] MEDS ORDERED: IPRAT-ALBUT 0.5-3 ML INH (12:33)
[2016-11-04] MEDS ORDERED: COUMADIN4 M1 PO (14:15)
[2016-11-08] MEDS ORDERED: AUGMENTIN 500-1 EAC2 PO (12:12)
[2016-11-08] MEDS ORDERED: DIFLUCAN100 M1 PO (12:13)
[2016-11-08] MEDS ORDERED: NYSTATIN100000 UNI PO (12:14)
[2016-11-08] MEDS ORDERED: MACROBID 100 M100 M1 PO (12:16)
[2016-11-08] MEDS ORDERED: LOVENOX120 MG/0.1 SC (12:19)
[2016-11-08] MEDS ORDERED: COUMADIN7.5 M1 PO (12:22)
[2016-12-03] MEDS ORDERED: APRISO0.375 G1 PO (15:33)
[2016-12-03] MEDS ORDERED: LYRICA50 MG/CAP PO (15:41)
[2016-12-03] MEDS ORDERED: CLARITIN10 M6 PO (15:41)
[2016-12-03] MEDS ORDERED: ROBAFEN100 MG/52 PO (15:47)
[2016-12-03] MEDS ORDERED: COUMADIN5 M2 PO (16:01)
[2016-12-03] MEDS ORDERED: COUMADIN2 M1 PO (16:02)
[2016-12-03] MEDS ORDERED: IPRAT-ALBUT 0.5-3 ML INH (16:21)
[2016-12-03] MEDS ORDERED: CALMOSEPTINE OI71 G1 TOP (16:31)
[2016-12-03] MEDS ORDERED: STOMAHESIVE P28.3 GM TOP (16:32)
[2016-12-06] MEDS ORDERED: LEVAQUIN750 M1 PO (14:42)
[2016-12-06] MEDS ORDERED: FAMOTIDINE20 M3 PO (14:53)
[2016-12-06] MEDS ORDERED: LASIX40 M1 PO (14:58)
== END 2016-09-29 15:00 | DRG 280 ==
LOC: EDMED 01:36 → EMR2 04:36 → CCU 05:43 → PCUA 09-25 16:15
PROVIDERS: Emergency Medicine; Family Medicine; Internal Medicine; Internal Medicine Critical Care Medicine; Internal Medicine Interventional Cardiology; Internal Medicine Nephrology; Physician Assistant; ADMIT Internal Medicine Cardiovascular Disease
PROC: 02HV33Z Insertion of Infusion Device into Superior Vena Cava, Percutaneous Approach (ICD-10-PCS; 2016-09-23)
PROC: B2161ZZ Fluoroscopy of Right and Left Heart using Low Osmolar Contrast (ICD-10-PCS; principal; 2016-09-24)
DX: I21.4 Non-ST elevation (NSTEMI) myocardial infarction (principal); J96.02 Acute respiratory failure with hypercapnia; J69.0 Pneumonitis due to inhalation of food and vomit; G93.40 Encephalopathy, unspecified; A41.9 Sepsis, unspecified organism; N17.9 Acute kidney failure, unspecified; J96.21 Acute and chronic respiratory failure with hypoxia; I69.354 Hemiplegia and hemiparesis following cerebral infarction affecting left non-dominant side; Z68.41 Body mass index [BMI] 40.0-44.9, adult; D68.51 Activated protein C resistance; N39.0 Urinary tract infection, site not specified; E66.2 Morbid (severe) obesity with alveolar hypoventilation; Z51.5 Encounter for palliative care; Z99.81 Dependence on supplemental oxygen; E87.5 Hyperkalemia; D64.9 Anemia, unspecified; I25.110 Atherosclerotic heart disease of native coronary artery with unstable angina pectoris; J44.9 Chronic obstructive pulmonary disease, unspecified; Z99.3 Dependence on wheelchair; E11.22 Type 2 diabetes mellitus with diabetic chronic kidney disease; N18.9 Chronic kidney disease, unspecified; I12.9 Hypertensive chronic kidney disease with stage 1 through stage 4 chronic kidney disease, or unspecified chronic kidney disease; D69.6 Thrombocytopenia, unspecified; I73.9 Peripheral vascular disease, unspecified; K21.9 Gastro-esophageal reflux disease without esophagitis; Z88.5 Allergy status to narcotic agent; Z79.82 Long term (current) use of aspirin; Z79.02 Long term (current) use of antithrombotics/antiplatelets; Z79.4 Long term (current) use of insulin; Z79.899 Other long term (current) drug therapy; Z95.5 Presence of coronary angioplasty implant and graft; Z95.1 Presence of aortocoronary bypass graft
CPT/HCPCS: C1751; C1894; C8929; J1644; J1650; J1815; J1940; J2270; J2405; J2543; J3370; J3475; J7030; J7040; J7050; P9045; P9047

== ENCOUNTER 2016-10-06 08:21 | Inpatient (IN) | payer MEDICARE, OTHER, MEDICAID ==
[~2016-10-06 08:21] MED LIST changes: +BIPAP; +TRESIBA FL100 UNIT/1 SC
[2016-10-06 09:11] LABS: INR 1.8 INR (0.9-1.1); PROTHROMBIN TIME 21.1 SECONDS (9.0-13.6)
[2016-10-06] MEDS ORDERED: GLUCOTROL10 M1 PO (09:21)
[2016-10-06] MEDS ORDERED: GLUCOTROL5 M1 PO (09:21)
[2016-10-06] MEDS ORDERED: ISOSORBIDE MONO60 M3 PO (09:22)
[2016-10-06] MEDS ORDERED: IPRAT-ALBUT 0.5-3 ML INH (09:22)
[2016-10-06] MEDS ORDERED: SYNTHROID50 MC1 PO (09:23)
[2016-10-06] MEDS ORDERED: PRINIVIL5 M1 PO (09:23)
[2016-10-06] MEDS ORDERED: SYNTHROID0.2 MG/TAB PO (09:23)
[2016-10-06] MEDS ORDERED: LYRICA50 MG/CAP PO (09:24)
[2016-10-06] MEDS ORDERED: MELATONIN5 M5 PO (09:24)
[2016-10-06] MEDS ORDERED: MAGNESIUM OXID400 M1 PO (09:24)
[2016-10-06] MEDS ORDERED: SINGULAIR10 M1 PO (09:25)
[2016-10-06] MEDS ORDERED: TOPROL XL50 M1 PO (09:25)
[2016-10-06] MEDS ORDERED: ASPIRIN81 M1 CH (09:26)
[2016-10-06] MEDS ORDERED: CULTURELLE1 EAC1 PO (09:26)
[2016-10-06] MEDS ORDERED: PLAVIX75 M1 PO (09:26)
[2016-10-06] MEDS ORDERED: APRISO0.375 G1 PO (09:26)
[2016-10-06] MEDS ORDERED: BENADRYL25 M3 PO ×2 (09:27→09:33)
[2016-10-06] MEDS ORDERED: LOVENOX120 MG/0.1 SC (09:28)
[2016-10-06] MEDS ORDERED: LEXAPRO10 M2 PO (09:28)
[2016-10-06] MEDS ORDERED: PEPCID20 M1 PO (09:28)
[2016-10-06] MEDS ORDERED: FEOSOL325 M1 PO (09:28)
[2016-10-06] MEDS ORDERED: DIFLUCAN150 M1 PO (09:29)
[2016-10-06] MEDS ORDERED: RANEXA500 M1 PO (09:30)
[2016-10-06] MEDS ORDERED: ROPINIROLE HCL0.5 M1 PO (09:30)
[2016-10-06] MEDS ORDERED: NOVOLOG FL100 UNIT/2 SC (09:30)
[2016-10-06] MEDS ORDERED: ROSUVASTATIN CA20 MG PO (09:31)
[2016-10-06] MEDS ORDERED: ROPINIROLE HCL1 M1 PO (09:31)
[2016-10-06] MEDS ORDERED: TRESIBA FL100 UNIT/1 SC (09:31)
[2016-10-06] MEDS ORDERED: ARTIFICIAL TEAR1512 OP (09:32)
[2016-10-06] MEDS ORDERED: ACETAMINOPHEN325 M2 PO (09:32)
[2016-10-06] MEDS ORDERED: CALCI-CHEW500 MG CH (09:33)
[2016-10-06 09:34] LABS: BASO % 0.8 % (0-2); BASO ABSOLUTE COUNT 0.1 tho/cmm (0.0-0.2); EOS % 1.9 % (0-7); EOSINOPHIL ABSOLUTE COUNT 0.1 tho/cmm (0.0-0.7); HCT-HEMATOCRIT 33.7 % (34.0-49.0); HGB-HEMOGLOBIN 10.3 gm/dl (12.0-15.5); IMMATURE GRANULOCYTES ABSOLUTE 0.05 tho/cmm (0-0.03); IMMATURE GRANULOCYTES PERCENT 0.8 % (0-0.3); LYMPH % 7.9 % (20-45); LYMPH ABSOLUTE COUNT 0.5 tho/cmm (0.8-4.5); MCH (MEAN CORPUSCULAR HGB) 25.8 pg (28.0-32.0); MCHC MEAN CORPUSCULAR HGB CONC 30.6 % (32.0-36.0); MCV (MEAN CELL VOLUME) 84.5 fl (82.0-96.0); MEAN PLATELET VOLUME 10.1 cmc (9.4-12.4); MONO % 7.5 % (0-12); MONOCYTE ABSOLUTE COUNT 0.5 tho/cmm (0.0-1.2); NEUTROPHIL ABSOLUTE COUNT 5.2 tho/cmm (1.6-8.0); NEUTROPHIL-AUTOMATED 5.2 tho/cmm (1.6-8.0); NEUTROPHILS % 81.1 % (40-80); PLATELET COUNT 157 tho/cmm (150-450); RED BLOOD COUNT 3.99 mil/cmm (4.00-5.20); WHITE BLOOD COUNT 6.4 tho/cmm (4.0-10.0)
[2016-10-06] MEDS ORDERED: GLUCAGEN1 MG IM (09:34)
[2016-10-06] MEDS ORDERED: DOCUSATE SODIU100 M3 PO (09:34)
[2016-10-06] MEDS ORDERED: XOPENEX1.25 MG/2 INH (09:35)
[2016-10-06] MEDS ORDERED: ATIVAN0.5 M1 PO (09:35)
[2016-10-06] MEDS ORDERED: SENNA PLUS TAB1 EAC1 PO (09:36)
[2016-10-06] MEDS ORDERED: NITROGLYCERIN0.4 M2 SL (09:36)
[2016-10-06] MEDS ORDERED: MIRALAX17 G2 PO (09:36)
[2016-10-06] MEDS ORDERED: NYAMYC15 GM TP (09:37)
[2016-10-06] MEDS ORDERED: CALMOSEPTINE OI71 G1 TP (09:37)
[2016-10-06] MEDS ORDERED: STOMAHESIVE P28.3 GM TP (09:38)
[2016-10-06 09:44] LABS: ALB/GLOB RATIO 0.9 (0.8-2.0); ALBUMIN 3.2 g/dl (3.5-5.0); ALKALINE PHOSPHATASE 63 U/L (33-138); ALT/SGPT 23 U/L (12-78); ANION GAP 15 mmol/L (0-20); AST/SGOT 16 U/L (10-40); BILIRUBIN,TOTAL 0.2 mg/dl (0-1.5); BLOOD UREA NITROGEN 19 mg/dl (6-24); CALCIUM 8.7 mg/dl (8.5-10.5); CARBON DIOXIDE-VENOUS 25 mmol/L (22-32); CHLORIDE 101 mmol/l (96-110); CREATININE 1.29 mg/dl (0.50-1.10); GLUCOSE 405 mg/dL (70-110); POTASSIUM 5.8 mmol/L (3.7-5.1); SODIUM 135 mmol/L (135-145); eGFR VALUE FOR BLACK 48 mL/Min
[2016-10-07 04:54] LABS: BASO % 0.6 % (0-2); EOS % 3.7 % (0-7); EOSINOPHIL ABSOLUTE COUNT 0.2 tho/cmm (0.0-0.7); HCT-HEMATOCRIT 30.4 % (34.0-49.0); HGB-HEMOGLOBIN 9.2 gm/dl (12.0-15.5); IMMATURE GRANULOCYTES ABSOLUTE 0.03 tho/cmm (0-0.03); IMMATURE GRANULOCYTES PERCENT 0.5 % (0-0.3); LYMPH ABSOLUTE COUNT 0.6 tho/cmm (0.8-4.5); MCHC MEAN CORPUSCULAR HGB CONC 30.3 % (32.0-36.0); MCV (MEAN CELL VOLUME) 85.9 fl (82.0-96.0); MEAN PLATELET VOLUME 9.8 cmc (9.4-12.4); MONO % 7.6 % (0-12); MONOCYTE ABSOLUTE COUNT 0.5 tho/cmm (0.0-1.2); NEUTROPHILS % 78.6 % (40-80); PLATELET COUNT 144 tho/cmm (150-450); RED BLOOD COUNT 3.54 mil/cmm (4.00-5.20); RED CELL DISTRIBUTION WIDTH 18.2 % (12.4-16.4); WHITE BLOOD COUNT 6.4 tho/cmm (4.0-10.0)
[2016-10-07 05:03] LABS: INR 1.5 INR (0.9-1.1); PROTHROMBIN TIME 17.4 SECONDS (9.0-13.6)
[2016-10-07 05:09] LABS: ANION GAP 12 mmol/L (0-20); BLOOD UREA NITROGEN 17 mg/dl (6-24); CALCIUM 8.8 mg/dl (8.5-10.5); CARBON DIOXIDE-VENOUS 27 mmol/L (22-32); CHLORIDE 99 mmol/l (96-110); CREATININE 1.27 mg/dl (0.50-1.10); GLUCOSE 326 mg/dL (70-110); POTASSIUM 5.3 mmol/L (3.7-5.1); SODIUM 133 mmol/L (135-145); eGFR VALUE FOR BLACK 49 mL/Min
[2016-10-07 21:19] LABS: BASO % 0.4 % (0-2); EOSINOPHIL ABSOLUTE COUNT 0.2 tho/cmm (0.0-0.7); HCT-HEMATOCRIT 30.1 % (34.0-49.0); IMMATURE GRANULOCYTES ABSOLUTE 0.02 tho/cmm (0-0.03); IMMATURE GRANULOCYTES PERCENT 0.3 % (0-0.3); LYMPH % 7.9 % (20-45); LYMPH ABSOLUTE COUNT 0.6 tho/cmm (0.8-4.5); MCH (MEAN CORPUSCULAR HGB) 25.7 pg (28.0-32.0); MCHC MEAN CORPUSCULAR HGB CONC 29.9 % (32.0-36.0); MEAN PLATELET VOLUME 8.9 cmc (9.4-12.4); MONO % 6.8 % (0-12); MONOCYTE ABSOLUTE COUNT 0.5 tho/cmm (0.0-1.2); NEUTROPHIL ABSOLUTE COUNT 5.8 tho/cmm (1.6-8.0); NEUTROPHIL-AUTOMATED 5.8 tho/cmm (1.6-8.0); NEUTROPHILS % 81.6 % (40-80); PLATELET COUNT 122 tho/cmm (150-450); RED CELL DISTRIBUTION WIDTH 18.5 % (12.4-16.4); WHITE BLOOD COUNT 7.1 tho/cmm (4.0-10.0)
[2016-10-07 21:30] LABS: ANION GAP 13 mmol/L (0-20); BLOOD UREA NITROGEN 17 mg/dl (6-24); CALCIUM 8.5 mg/dl (8.5-10.5); CARBON DIOXIDE-VENOUS 27 mmol/L (22-32); CHLORIDE 99 mmol/l (96-110); CREATININE 1.37 mg/dl (0.50-1.10); GLUCOSE 351 mg/dL (70-110); POTASSIUM 5.1 mmol/L (3.7-5.1); SODIUM 134 mmol/L (135-145); eGFR VALUE FOR BLACK 45 mL/Min
[2016-10-07 22:31] LABS: ABG CO2 ARTERIAL 28 mmol/L (21-27); ARTERIAL BLD GAS O2 SATURATION 94 % (95-98); ARTERIAL BLOOD GAS PCO2 49 mmHg (32-45); ARTERIAL PO2 73 mmHg (70-100); BICARBONATE 26 mmol/L (21-28); BLOOD GAS BASE EXCESS 1 mM/L (-/+3); PH 7.35 Units (7.35-7.45)
[2016-10-08 02:27] LABS: URINE BILIRUBIN NEGATIVE (NEG); URINE BLOOD MODERATE (NEG); URINE GLUCOSE (UA) LARGE (NEG); URINE KETONE NEGATIVE (NEG); URINE LEUKOCYTE ESTERASE POSITIVE (NEG); URINE NITRITE NEGATIVE (NEG); URINE PROTEIN MODERATE (NEG); URINE SPECIFIC GRAVITY 1.015 (1.003-1.030)
[2016-10-08 02:30] LABS: URINE APPEARANCE HAZY; URINE COLOR YELLOW
[2016-10-08 02:33] LABS: URINE BACTERIA 1+; URINE EPITHELIAL CELLS 0-1 /[HPF] (0-10); URINE RBC 0 /[HPF] (0-5); URINE WBC 20-30 /[HPF] (0-5)
[2016-10-08 05:36] LABS: BASO % 0.8 % (0-2); EOSINOPHIL ABSOLUTE COUNT 0.2 tho/cmm (0.0-0.7); HCT-HEMATOCRIT 29.4 % (34.0-49.0); HGB-HEMOGLOBIN 8.8 gm/dl (12.0-15.5); IMMATURE GRANULOCYTES ABSOLUTE 0.03 tho/cmm (0-0.03); IMMATURE GRANULOCYTES PERCENT 0.6 % (0-0.3); LYMPH % 11.8 % (20-45); LYMPH ABSOLUTE COUNT 0.6 tho/cmm (0.8-4.5); MCHC MEAN CORPUSCULAR HGB CONC 29.9 % (32.0-36.0); MCV (MEAN CELL VOLUME) 86.7 fl (82.0-96.0); MEAN PLATELET VOLUME 9.2 cmc (9.4-12.4); MONO % 9.1 % (0-12); MONOCYTE ABSOLUTE COUNT 0.5 tho/cmm (0.0-1.2); NEUTROPHIL ABSOLUTE COUNT 3.9 tho/cmm (1.6-8.0); NEUTROPHIL-AUTOMATED 3.9 tho/cmm (1.6-8.0); NEUTROPHILS % 73.7 % (40-80); PLATELET COUNT 110 tho/cmm (150-450); RED BLOOD COUNT 3.39 mil/cmm (4.00-5.20); RED CELL DISTRIBUTION WIDTH 18.1 % (12.4-16.4); WHITE BLOOD COUNT 5.3 tho/cmm (4.0-10.0)
[2016-10-08 05:39] LABS: INR 1.2 INR (0.9-1.1); PROTHROMBIN TIME 13.6 SECONDS (9.0-13.6)
[2016-10-08 05:50] LABS: ANION GAP 10 mmol/L (0-20); BLOOD UREA NITROGEN 15 mg/dl (6-24); CALCIUM 8.7 mg/dl (8.5-10.5); CARBON DIOXIDE-VENOUS 29 mmol/L (22-32); CHLORIDE 102 mmol/l (96-110); GLUCOSE 301 mg/dL (70-110); POTASSIUM 5.2 mmol/L (3.7-5.1); SODIUM 136 mmol/L (135-145); eGFR VALUE FOR BLACK 53 mL/Min
--- NOTE | 2016-10-08 08:26 | NUR ---
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 DAUGHTER MICHAEL CAME UP TO PT'S ROOM AND CONTINUOUSLY PUSHING CALL LIGHT WITH DIFFERENT QUESTIONS, SHE ALSO HAD ANOTHER FAMILY MEMBER ON THE PHONE AND WAS RELAYING QUESTIONS FROM FAMILY TO RN. STAFF UNABLE TO PERFORM PT CARES BECAUSE OF DEMANDS FROM FAMILY. ENCOURAGED FAMILY TO WRITE QUESTIONS DOWN FOR RN TO GO OVER AT ONE TIME. FAMILY REFUSED TO DO THIS. WILL CONTINUE TO MONITOR.
[2016-10-08 11:19] LABS: PROCALCITONIN 0.09 ng/ml (0.05-0.09)
[2016-10-09 06:03] LABS: BASO % 0.9 % (0-2); EOSINOPHIL ABSOLUTE COUNT 0.1 tho/cmm (0.0-0.7); HCT-HEMATOCRIT 27.9 % (34.0-49.0); HGB-HEMOGLOBIN 8.5 gm/dl (12.0-15.5); IMMATURE GRANULOCYTES ABSOLUTE 0.02 tho/cmm (0-0.03); IMMATURE GRANULOCYTES PERCENT 0.4 % (0-0.3); LYMPH % 10.9 % (20-45); LYMPH ABSOLUTE COUNT 0.5 tho/cmm (0.8-4.5); MCH (MEAN CORPUSCULAR HGB) 25.9 pg (28.0-32.0); MCHC MEAN CORPUSCULAR HGB CONC 30.5 % (32.0-36.0); MCV (MEAN CELL VOLUME) 85.1 fl (82.0-96.0); MEAN PLATELET VOLUME 9.4 cmc (9.4-12.4); MONO % 7.9 % (0-12); MONOCYTE ABSOLUTE COUNT 0.4 tho/cmm (0.0-1.2); NEUTROPHIL ABSOLUTE COUNT 3.6 tho/cmm (1.6-8.0); NEUTROPHIL-AUTOMATED 3.6 tho/cmm (1.6-8.0); NEUTROPHILS % 76.9 % (40-80); PLATELET COUNT 114 tho/cmm (150-450); RED BLOOD COUNT 3.28 mil/cmm (4.00-5.20); RED CELL DISTRIBUTION WIDTH 17.8 % (12.4-16.4); WHITE BLOOD COUNT 4.7 tho/cmm (4.0-10.0)
[2016-10-09 06:14] LABS: INR 1.1 INR (0.9-1.1); PROTHROMBIN TIME 13.3 SECONDS (9.0-13.6)
[2016-10-09 06:21] LABS: ANION GAP 13 mmol/L (0-20); BLOOD UREA NITROGEN 11 mg/dl (6-24); CALCIUM 8.4 mg/dl (8.5-10.5); CARBON DIOXIDE-VENOUS 27 mmol/L (22-32); CHLORIDE 99 mmol/l (96-110); CREATININE 1.03 mg/dl (0.50-1.10); GLUCOSE 296 mg/dL (70-110); POTASSIUM 4.2 mmol/L (3.7-5.1); SODIUM 135 mmol/L (135-145); eGFR VALUE FOR BLACK 63 mL/Min
[2016-10-10 05:46] LABS: BASO % 1.1 % (0-2); BASO ABSOLUTE COUNT 0.1 tho/cmm (0.0-0.2); EOSINOPHIL ABSOLUTE COUNT 0.2 tho/cmm (0.0-0.7); HGB-HEMOGLOBIN 8.9 gm/dl (12.0-15.5); IMMATURE GRANULOCYTES ABSOLUTE 0.01 tho/cmm (0-0.03); IMMATURE GRANULOCYTES PERCENT 0.2 % (0-0.3); LYMPH % 11.6 % (20-45); LYMPH ABSOLUTE COUNT 0.6 tho/cmm (0.8-4.5); MCH (MEAN CORPUSCULAR HGB) 25.9 pg (28.0-32.0); MCHC MEAN CORPUSCULAR HGB CONC 30.7 % (32.0-36.0); MCV (MEAN CELL VOLUME) 84.3 fl (82.0-96.0); MEAN PLATELET VOLUME 9.3 cmc (9.4-12.4); MONO % 8.2 % (0-12); MONOCYTE ABSOLUTE COUNT 0.4 tho/cmm (0.0-1.2); NEUTROPHILS % 74.9 % (40-80); PLATELET COUNT 142 tho/cmm (150-450); RED BLOOD COUNT 3.44 mil/cmm (4.00-5.20); RED CELL DISTRIBUTION WIDTH 17.5 % (12.4-16.4); WHITE BLOOD COUNT 5.3 tho/cmm (4.0-10.0)
[2016-10-10 05:49] LABS: INR 1.2 INR (0.9-1.1); PROTHROMBIN TIME 14.3 SECONDS (9.0-13.6)
[2016-10-10 05:56] LABS: ANION GAP 12 mmol/L (0-20); BLOOD UREA NITROGEN 15 mg/dl (6-24); CALCIUM 8.6 mg/dl (8.5-10.5); CARBON DIOXIDE-VENOUS 29 mmol/L (22-32); CHLORIDE 99 mmol/l (96-110); CREATININE 1.23 mg/dl (0.50-1.10); GLUCOSE 296 mg/dL (70-110); POTASSIUM 3.9 mmol/L (3.7-5.1); SODIUM 136 mmol/L (135-145); eGFR VALUE FOR BLACK 51 mL/Min
[2016-10-10] MEDS ORDERED: ULTRAM50 M1 PO (12:53)
[2016-11-04] MEDS ORDERED: PERCOCET 10-321 EACH PO (12:29)
[2016-11-04] MEDS ORDERED: IPRAT-ALBUT 0.5-3 ML INH (12:33)
[2016-11-04] MEDS ORDERED: COUMADIN4 M1 PO (14:15)
[2016-11-08] MEDS ORDERED: AUGMENTIN 500-1 EAC2 PO (12:12)
[2016-11-08] MEDS ORDERED: DIFLUCAN100 M1 PO (12:13)
[2016-11-08] MEDS ORDERED: NYSTATIN100000 UNI PO (12:14)
[2016-11-08] MEDS ORDERED: MACROBID 100 M100 M1 PO (12:16)
[2016-11-08] MEDS ORDERED: LOVENOX120 MG/0.1 SC (12:19)
[2016-11-08] MEDS ORDERED: COUMADIN7.5 M1 PO (12:22)
[2016-12-03] MEDS ORDERED: APRISO0.375 G1 PO (15:33)
[2016-12-03] MEDS ORDERED: LYRICA50 MG/CAP PO (15:41)
[2016-12-03] MEDS ORDERED: CLARITIN10 M6 PO (15:41)
[2016-12-03] MEDS ORDERED: ROBAFEN100 MG/52 PO (15:47)
[2016-12-03] MEDS ORDERED: COUMADIN5 M2 PO (16:01)
[2016-12-03] MEDS ORDERED: COUMADIN2 M1 PO (16:02)
[2016-12-03] MEDS ORDERED: IPRAT-ALBUT 0.5-3 ML INH (16:21)
[2016-12-03] MEDS ORDERED: CALMOSEPTINE OI71 G1 TOP (16:31)
[2016-12-03] MEDS ORDERED: STOMAHESIVE P28.3 GM TOP (16:32)
[2016-12-06] MEDS ORDERED: LEVAQUIN750 M1 PO (14:42)
[2016-12-06] MEDS ORDERED: FAMOTIDINE20 M3 PO (14:53)
[2016-12-06] MEDS ORDERED: LASIX40 M1 PO (14:58)
== END 2016-10-10 13:35 | DRG 563 ==
LOC: EDMED 08:21 → EMR2 13:20 → 5EB 14:53
PROVIDERS: Emergency Medicine; Internal Medicine; Physician Assistant Medical; ADMIT Family Medicine
DX: S82.101A Unspecified fracture of upper end of right tibia, initial encounter for closed fracture (principal); J96.11 Chronic respiratory failure with hypoxia; D68.51 Activated protein C resistance; I69.959 Hemiplegia and hemiparesis following unspecified cerebrovascular disease affecting unspecified side; S82.401A Unspecified fracture of shaft of right fibula, initial encounter for closed fracture; E11.9 Type 2 diabetes mellitus without complications; J44.9 Chronic obstructive pulmonary disease, unspecified; I25.10 Atherosclerotic heart disease of native coronary artery without angina pectoris; Z79.82 Long term (current) use of aspirin; Z79.4 Long term (current) use of insulin; Z79.01 Long term (current) use of anticoagulants; W19.XXXA Unspecified fall, initial encounter; Z53.9 Procedure and treatment not carried out, unspecified reason
CPT/HCPCS: A9503; G8996-GN-CI; G8997-GN-CH; G8997-GN-CI; G8998-GN-CI; J0696; J1170; J1644; J1650; J1815; J2405; J3430; J7030; J7050; P9017